=== PATIENT | female | born 1940 | race Caucasian/White ===

== ENCOUNTER 2022-12-26 12:46 | Emergency (ER) | payer MEDICARE | END 2022-12-26 14:40 | disposition home or self-care (01) | LOC: CSHERS 12:46 | DX: S82.61XA Displaced fracture of lateral malleolus of right fibula, initial encounter for closed fracture (principal); I10 Essential (primary) hypertension; X50.1XXA Overexertion from prolonged static or awkward postures, initial encounter ==